=== PATIENT | male | born 1990 | race Caucasian/White ===

== ENCOUNTER → 2019-10-11 17:31 | Outpatient (CLI) | payer OTHER, SELFPAY ==
--- NOTE | 2019-10-11 | DI.MRI.S_ITS ---
PROCEDURE: MR SHOULDER RT WO CON INDICATIONS: Pain in the R shoulder TECHNIQUE: Noncontrast oblique coronal T2 fast spin echo with fat saturation, oblique sagittal T1 spin echo and T2 fast spin echo with fat saturation, axial T1 spin echo and T2 fast spin echo with fat saturation through the shoulder. COMPARISON: None. FINDINGS: Image quality: Excellent. Rotator cuff: There is low-grade bursal surface partial-thickness tear involving distal supraspinatus at its insertion the humeral head extending to musculotendinous junction. Distal infraspinatus tendon is intact. Distal subscapularis tendon is intact. Sagittal images demonstrate no significant muscle atrophy. Bones and bursae: No bone marrow contusions or fractures. Mild osteophytic changes involving acromioclavicular joint is seen.. No pathologic subacromial-subdeltoid or subcoracoid bursal fluid is present. Capsule and soft tissues: In the absence of intra-articular contrast, the labrum and glenohumeral ligaments appear intact. The long head of the biceps tendon demonstrates normal location and morphology. The rotator interval appears normal, without fibrosis. The coracohumeral ligament is normal in thickness. IMPRESSION: 1. Tendinosis and low-grade bursal surface partial-thickness tear involving distal supraspinatus. No full-thickness rotator cuff tendon rupture. 2. Mild acromioclavicular joint osteoarthritis. 3. No evidence of focal labral tear. Dictated by: Rodrigo Horton M.D. on 10/12/2019 at 11:11 Approved by: Rodrigo Horton M.D. on 10/12/2019 at 11:19
== END ==
DX: M25.511 Pain in right shoulder (principal); M75.111 Incomplete rotator cuff tear or rupture of right shoulder, not specified as traumatic; M19.011 Primary osteoarthritis, right shoulder
CPT/HCPCS: 73221

== ENCOUNTER → 2019-11-18 10:59 | Outpatient (CLI) | payer OTHER, SELFPAY ==
--- NOTE | 2019-11-18 | DI.MRI.S_ITS ---
PROCEDURE: MR SHOULDER RT W CON INDICATIONS: RIGHT SHOULDER LABREL TEAR TECHNIQUE: After the administration of 12 mL of dilute intra-articular Gadolinium contrast, oblique coronal T1 and T2 spin echo with fat saturation, oblique sagittal T1 spin echo with and without fat saturation, oblique sagittal T2 fast spin echo with fat saturation, axial T1 spin echo with fat saturation through the shoulder. COMPARISON: [facility], MR, MR SHOULDER RT WO CON, 10/11/2019, 17:37. FINDINGS: Image quality: Diagnostic. I Rotator cuff: No full-thickness or high-grade partial-thickness tear the rotator cuff is identified. There is mild subscapularis tendinopathy without significant pain. There is also minimal increased signal involving the supraspinatus tendon with probable low grade bursal surface partial-thickness tearing, not significantly changed. The infraspinatus and teres minor tendons are intact. No significant atrophy of the rotator cuff muscles is evident. Bones and bursae: No acute fracture, dislocation, or suspicious osseous lesion is present involving the osseous structures of the shoulder. Minimal degenerative changes of the glenohumeral joint are present with slight degenerative cystic change evident along the posterosuperior aspect of the humeral head. Flattening within this region of the humeral head is suggestive of a possible old Hill-Sachs deformity from a potential sustained anterior shoulder dislocation. Anteroinferior margin of the glenoid is intact and otherwise unremarkable. There is adequate distention of the glenohumeral joint with the injected contrast. None of this contrast extends into the subacromial subdeltoid bursa to suggest a nonvisualized full-thickness tear of the rotator cuff. Slight thickening of the bursa is present without significant fluid contained within the bursa. Contrast is seen extending beyond the inferior joint capsule into the adjacent axillary soft tissues, which is relatively contained, suggesting a chronic process. Capsule and soft tissues: There is a tear of the anterior labrum that extends from approximately the 12 o'clock position to the 6 o'clock position. There may be slight extension of the tear into the posteroinferior margin of the labrum, as well. No detached labral fragments are evident. The long head of the biceps tendon is normally positioned within the bicipital groove and is noted to be intact and otherwise unremarkable. The superior and middle glenohumeral ligaments are intact. A chronic injury of the inferior glenohumeral ligament is present with contrast material extending beyond the inferior joint capsule and associated irregularity of the mid to posterior aspect of the inferior glenohumeral ligament, compatible with chronic tearing. IMPRESSION: 1. Moderate to large anterior labral tear may be related to previous sustained anterior shoulder dislocation, particularly given slight flattening of the posterosuperior humeral head that suggests an old bony Bank[place]. Please correlate clinically. 2. No acute fracture or dislocation. 3. Mild supraspinatus and infraspinatus tendinopathy. No full-thickness rotator cuff tear. 4. Tearing of the inferior glenohumeral ligament appears chronic. Dictated by: José Luis Macias M.D. on 11/18/2019 at 14:02 Approved by: José Luis Macias M.D. on 11/18/2019 at 14:12
--- NOTE | 2019-11-18 | DI.RAD.S_ITS ---
PROCEDURE: FL SHOULDER INJECTION MR/CT RT INDICATIONS: RIGHT SHOULDER LABREL TEAR TECHNIQUE: The indications, alternatives, benefits, risks, and complications of the procedure were explained to the patient. Written informed consent was obtained and placed in the chart. The shoulder was examined fluoroscopically and a site for needle placement chosen for entry into the glenohumeral joint from an anterior approach. The skin was prepped and draped in a sterile fashion, and 1% lidocaine infiltrated from skin down to joint capsule. A spinal needle was inserted into the glenohumeral joint, and a small amount of iodinated contrast media injected to confirm intra-articular placement of the needle tip. This was followed by approximately 12 mL dilute solution of a gadolinium containing MR contrast agent. The needle was removed and a dressing was applied. The patient was given postprocedural instructions and sent to the MR suite for MR imaging. FINDINGS: A single fluoroscopic spot image demonstrates intra-articular location of injected iodinated contrast. IMPRESSION: Successful fluoroscopically guided administration of dilute Gadolinium solution into the shoulder joint for MR arthrogram. Dictated by: Luke Messina M.D. on 11/18/2019 at 13:23 Approved by: Luke Messina M.D. on 11/18/2019 at 13:26
== END ==
PROVIDERS: Visit Provider Orthopaedic Surgery
DX: S43.491A Other sprain of right shoulder joint, initial encounter (principal)
CPT/HCPCS: 23350; 73222; 77002

== ENCOUNTER → 2024-03-31 08:43 | Outpatient (CLI) | payer OTHER, SELFPAY ==
--- NOTE | 2024-03-31 | DI.US.S_ITS ---
PROCEDURE: US SOFT TISSUE HEAD AND NECK INDICATIONS: SUPERIOR/ANTERIOR NECK LUMP TECHNIQUE: Real-time scanning was performed of the neck region of interest, with image documentation. COMPARISON: [facility] , US SOFT TISSUE HEAD OR NECK, 12/05/2022, 8:04. FINDINGS: Within the right anterior/superior neck, there is a lesion with similar echogenicity to the surrounding fat measuring 3.9 x 0.6 x 2.9 centimeters, previously 2.5 x 0.5 x 2.4 centimeters. No internal vascularity is seen. No solid masses are seen. IMPRESSION: Increased size of fat echogenicity lesion within the right neck. Given increase in size, recommend short-term follow-up or MRI with and without contrast for further evaluation and to exclude malignancy. Dictated by: Del Aguayo M.D. on 03/31/2024 at 11:18 Approved by: Del Aguayo M.D. on 03/31/2024 at 11:21
== END ==
PROVIDERS: PCP Student in an Organized Health Care Education/Training Program; Referring Provider Student in an Organized Health Care Education/Training Program; Visit Provider Student in an Organized Health Care Education/Training Program
DX: R59.0 Localized enlarged lymph nodes (principal)
CPT/HCPCS: 76536

== ENCOUNTER 2024-08-15 07:28 | Day surgery (SDC) | payer OTHER, SELFPAY ==
[2024-08-15 07:47] VITALS: BP 123/81; PULSE 72; RESP 18; TEMP 36.4; O2SAT 98
[2024-08-15] MEDS: LACTATED RINGERS 1,000 ML 42 ML IV (07:51)
--- NOTE | 2024-08-15 08:00 | PM.HP.1 ---
History of Present Illness History of Present Illness Date Patient Seen: 08/15/24 Time Patient Seen: 08:01 Chief complaint: Dx Colonoscopy w/poss bx Narrative: 34-year-old male here for colonoscopy. I reviewed the recent office note by Edilberto Nolasco. No significant changes. He indicates he has a small hemorrhoid and mild IBS. He is family history of colon cancer and has previously been advised following a 2019 colonoscopy to experience colonoscopy q.5h years. PFSH Social History Smoking Status: Never smoker alcohol intake: current Meds Home Medications and Allergies Home Medications Medication Instructions Recorded Confirmed Type omeprazole 20 mg capsule,delayed 20 mg PO DAILY 08/15/24 08/15/24 History release Review of Systems Review of Systems ROS: Yes All systems reviewed with the patient and are negative except as otherwise documented Exam Vital Signs (past 8 hours): - 08/15/24 07:47 Temperature 97.6 F Pulse Rate 72 Respiratory Rate 18 Blood Pressure 123/81 Pulse Oximetry 98 Oxygen Delivery Method Room Air Oxygen Delivery Method Room Air Const General: cooperative HENMT Head: normal to inspection Eyes General: appearance normal, both eyes and all related structures Neck Neck: normal visual inspection Chest Chest: normal inspection of the chest Resp Effort & Inspection: normal respiratory effort Cardio Rate: regular rate GI Inspection: normal to inspection Skin General: no rashes or lesions noted Neuro General: patient alert and patient awake Extrem General: normal to inspection and no pedal edema Psych Appearance: grossly normal Assessment & Plan Assessment & Plan narrative: 34-year-old male with family history of colon cancer. High-risk screening colonoscopy is pursued today. Time-Based Coding :: [TOTAL MINUTES] spent with patient and on the chart (including review of chart, obtaining history, exam, reviewing outside data, placing orders, documenting exam and treatment plan, and counseling patient) on [DATE].
--- NOTE | 2024-08-15 08:02 | PM.PREOP ---
Pre-operative Note Interval Note History & Physical reviewed/Exam performed by Physician: Yes Changes to H&P: No ASA Class (for procedural sedation): I
--- NOTE | 2024-08-15 09:02 | PM.OP.COLON ---
Operative Date/Time/Diagnoses Date of procedure: 08/15/24 Time of procedure: 09:02 Pre-op diagnosis: Family history of colon cancer. Post-op diagnosis: same Procedure & Clinicians Study performed: Colonoscopy Same procedure as scheduled: Yes Indications: Family history colon cancer Surgeon: Garland Fine Procedure Notes SCOAP/Timeout: Done Procedure in detail: After the risks and benefits were explained, written and verbal informed consent was obtained. The patient was brought into the procedure room and placed into the left lateral decubitus position. Please see anesthesia notes for sedation details. Digital rectal examination was accomplished. The scope was introduced into the patient and advanced under direct visualization to the cecum as identified by the appendiceal orifice and ileocecal valve. The scope was slowly withdrawn to carefully examine the mucosa for any defects or lesions. Comprehensive imaging was accomplished throughout the rectum including the dentate line. The colon was decompressed, the scope was then removed from the patient who tolerated the procedure well. Adult colonoscope Bowel prep adequate Scope withdrawal time: 9 minutes Sedation minutes: 15 Specimen(s): none sent Complications: none Impression: The patient had evidence of grade 1 internal hemorrhoids and essentially grade 2 in a single column. No thrombosis no bleeding. No fissure. No significant polyps mass lesions or inflammatory features identified throughout. Endoscopic diagnosis 1. Grade 1-2 internal hemorrhoids 2. Otherwise visually normal colonoscopy Post-procedure Plan for aftercare: 1. Intermittent warm Epsom salt baths to reduce hemorrhoidal engorgement. 2. Fiber based bowel regimen for soft regular stools. 3. Repeat colonoscopy 5 years considering family history. Disposition: PACU
[2024-08-15 09:05] VITALS: BP 110/63; PULSE 80; RESP 14; TEMP 36.9; O2SAT 99
[2024-08-15 09:10] VITALS: BP 105/63; PULSE 69; RESP 19; O2SAT 98
[2024-08-15 09:15] VITALS: BP 108/59; PULSE 70; RESP 22; O2SAT 99
[2024-08-15 09:25] VITALS: BP 115/71; PULSE 70; RESP 14; O2SAT 100
== END 2024-08-15 09:35 | disposition home or self-care (01) ==
PROVIDERS: PCP Student in an Organized Health Care Education/Training Program; Referring Provider Internal Medicine Gastroenterology; Visit Provider Internal Medicine Gastroenterology
PROC: 0DJD8ZZ Inspection of Lower Intestinal Tract, Via Natural or Artificial Opening Endoscopic (ICD-10-PCS; CPT 45378; principal; 2024-08-15 08:30)
DX: Z12.11 Encounter for screening for malignant neoplasm of colon (principal); Z80.0 Family history of malignant neoplasm of digestive organs; K64.1 Second degree hemorrhoids
CPT/HCPCS: 45378; J2704

== ENCOUNTER → 2025-02-20 13:30 | Outpatient (CLI) | payer OTHER, SELFPAY ==
--- NOTE | 2025-02-20 13:31 | DI.MRI.S_ITS ---
PROCEDURE: MR CERVICAL SPINE WO CON INDICATIONS: Cervicalgia TECHNIQUE: Noncontrast sagittal T1 spin echo and T2 fast spin echo, sagittal STIR, foraminal oblique sagittal T2 fast spin echo, and axial gradient echo or T2 fast spin echo through the cervical spine. COMPARISON: None. FINDINGS: Image quality: Excellent. Alignment and Curvature: There is normal bony alignment. Bone Marrow: Marrow demonstrates normal overall signal. Spinal Cord: Visualized spinal cord has normal size and signal. No cerebellar tonsillar herniation. Paraspinous Soft Tissues: No paravertebral masses. Prevertebral soft tissues are normal in thickness. C2-C3: No disc bulge, spinal stenosis or foraminal narrowing. C3-C4: No disc bulge, spinal stenosis or foraminal narrowing. C4-C5: Mild disc bulge with minimal canal narrowing. No foraminal narrowing. C5-C6: Mild disc bulge with mild canal narrowing. Minimal left foraminal narrowing. C6-C7: Minimal disc bulge without spinal stenosis or foraminal narrowing. C7-T1: No disc bulge, spinal stenosis or foraminal narrowing. IMPRESSION: Scattered areas of disc bulge. Minimal to mild canal narrowing at C4-5 and C5-6 secondary to disc bulge. Dictated by: Briana Serna M.D. on 02/20/2025 at 16:53 Approved by: Briana Serna M.D. on 02/20/2025 at 16:54
== END ==
DX: M50.321 Other cervical disc degeneration at C4-C5 level (principal)
CPT/HCPCS: 72141